=== PATIENT | female | born 1965 | race Caucasian/White ===

== ENCOUNTER → 2016-11-08 | Outpatient (CLI) | payer BC ==
--- NOTE | 2016-11-08 17:13 | MAMMOGRAPHY REPORT ---
BILATERAL DIGITAL DIAGNOSTIC MAMMOGRAM TOMOSYNTHESIS WITH CAD AND TARGETED BILATERAL ULTRASOUND: 11/08 CLINICAL HISTORY: 51-year-old woman with bilateral focal pain in the upper outer quadrant of the radha asts. Annual bilateral screening mammogram. TECHNIQUE: Bilateral breast tomosynthesis in addition to standard 2D mammography, spot magnification left CC and ML views were performed. Current study was also evaluated with a Computer Aided Detect ion (CAD) system. COMPARISON: Comparison is made to exams dated: 02/02/2015 mammogram, 01/19/2015 mammogram, 08/13/2013 ultrasound, 08/06/2013 mammogram, and 01/30/2012 mammogram - [facility]. BREAST COMPOSITION: There are scattered areas of fibroglandular density in both breasts. FINDINGS: Triangular skin palpable markers overlie the upper outer quadrant of each breast. The par enchymal pattern is similar to prior exams. Multiple bilateral circumscribed subcentimeter low-dens ity masses are seen throughout the breasts, best appreciated on the tomosynthesis images. No suspic ious spiculated or irregular mass or architectural distortion is identified. There are regional alexander rocalcifications in the middle one third of the left breast in the 12:00 and 1:00 axes. Spot magnif ication views were obtained for these calcifications. They are punctate and smudgy on the spot magn ification CC view and almost all demonstrate layering or tea cupping on the spot magnification MLO v iew compatible with benign milk of calcium. They appear similar in number and distribution when com paring to the 02/02/2015 spot magnification views. Targeted ultrasound was performed in the area of pain within each breast pointed out by the patient. In the left 2:00 breast, 5 cm from the nipple, there are scattered anechoic cysts within dense gla ndular tissue, which may be contributing to the patient's pain. Numerous other cysts are scattered about the left breast in the 2:00 through 4:00 axes. In the area of pain within the right breast, m ost concentrated in the 10:00 axis, 4 cm from the nipple, several anechoic benign simple cysts are a gain seen. The worst pain was elicited scanning over the dominant anechoic cyst in the 10:00 right breast which measures 8.6 x 6.5 mm. No suspicious solid mass is identified bilaterally on targeted ultrasound. IMPRESSION: ACR-BI-RADS CATEGORY 3: PROBABLY BENIGN, TARGETED ULTRASOUND ACR-BI-RADS CATEGORY 3: ND OBABLY BENIGN 1. There are multiple bilateral anechoic cysts seen in the breast on ultrasound. The cysts are mos t numerous in each upper outer quadrant, correlating with the focal pain described by the patient an d therefore the cysts are likely contributing to the patient's pain. No suspicious solid mass was i dentified on ultrasound. 2. There are stable bilateral mammograms including multiple bilateral circumscribed subcentimeter m asses and regional microcalcifications in the central left breast. These findings are most compatib le with benign fibrocystic changes. Many of the calcifications layer on the spot magnification ML v iew and they do not appear significantly changed comparing to the 2015 mammograms, therefore they mo st likely benign represent fibrocystic changes. However, repeat attention on follow-up in 12 months is recommended given that the are increased comparing to the 2013 and prior available mammograms. These results and recommendations were discussed with the patient at the time of the exam. She tent atively scheduled a follow-up diagnostic mammogram in 12 months prior to leaving our department. Approximately 10% of breast cancers are not detected with mammography. A negative mammographic repor t should not delay biopsy if a clinically suggestive mass is present. Alicia Oglesby M.D. ay/:11/08/2016 15:16:06 Business Services Clerk: Connie Beverly, [facility] letter sent: Follow Up Recommended 3 BI-RADS Code: ACR-BI-RADS Category 3: Probably Benign Ultrasound BI-RADS: ACR-BI-RADS Category 3: P robably Benign
== END | disposition home or self-care (01) ==
LOC: C.MAMM 14:18
PROVIDERS: ATTEND Obstetrics & Gynecology
DX: N64.4 Mastodynia (principal); N60.11 Diffuse cystic mastopathy of right breast; N60.12 Diffuse cystic mastopathy of left breast; N63 Unspecified lump in breast; R92.0 Mammographic microcalcification found on diagnostic imaging of breast

== ENCOUNTER → 2017-11-09 | Outpatient (CLI) | payer BC ==
--- NOTE | 2017-11-09 15:28 | MAMMOGRAPHY REPORT ---
BILATERAL DIGITAL DIAGNOSTIC MAMMOGRAM TOMOSYNTHESIS WITH CAD: 11/09/2017 CLINICAL HISTORY: 12 month follow-up of left breast calcifications. Due for routine mammography of t he right breast. The patient reports no new lumps or other complaints. TECHNIQUE: Breast tomosynthesis in addition to standard 2D mammography was performed. Current study was also evaluated with a Computer Aided Detection (CAD) system. Bilateral CC and MLO 2-D and tomosy nthesis images and spot magnification left CC and ML views were obtained. COMPARISON: Comparison is made to exams dated: 11/08/2016 ultrasound, 11/08/2016 mammogram, 02/02/2015 wanda mogram, 01/19/2015 mammogram, 08/13/2013 ultrasound, and 08/06/2013 mammogram - [facility]. BREAST COMPOSITION: There are scattered areas of fibroglandular density in both breasts. FINDINGS: Spot magnification views of the left breast demonstrate regional calcifications throughout the superior left breast, which demonstrate layering on the lateral view and are consistent with steven ign milk of calcium. The calcifications are not significantly changed compared to the November 2016 exam. The remainder of both breasts demonstrate no suspicious masses, calcifications, or areas of enterprise cloud architect ural distortion. Again noted are fluctuating round/oval circumscribed benign-appearing masses bilate rally, consistent with cysts as seen on prior ultrasound exams. IMPRESSION: ACR BI-RADS CATEGORY 2: BENIGN There is no mammographic evidence of malignancy in either breast. A 1 year screening mammogram is rec ommended. The patient has been verbally notified of the results. Approximately 10% of breast cancers are not detected with mammography. A negative mammographic report should not delay biopsy if a clinically suggestive mass is present. Kay Saucedo M.D. /:11/09/2017 14:40:48 Senior Talent Acquisition Specialist: Connie Beverly, [facility] letter sent: Normal 1/2 BI-RADS Code: ACR BI-RADS Category 2: Benign
== END | disposition home or self-care (01) ==
LOC: C.MAMM 14:15
PROVIDERS: ATTEND Nurse Practitioner Women's Health
DX: R92.8 Other abnormal and inconclusive findings on diagnostic imaging of breast (principal)